=== PATIENT | female | born 1980 | race Caucasian/White ===

== ENCOUNTER → 2020-04-28 14:15 | Outpatient (CLI) | payer MEDICAID, SELFPAY ==
[2020-04-28 12:46] VITALS: BMI 41.6
== END ==
PROVIDERS: Referring Provider Physician Assistant Medical; Visit Provider Physician Assistant Medical
DX: U07.1 COVID-19 (principal)
CPT/HCPCS: 87635; U0003

== ENCOUNTER 2022-11-03 10:34 | Emergency (ER) | payer OTHER, SELFPAY ==
[2022-11-03 10:35] VITALS: BP 181/95; PULSE 87; RESP 16; TEMP 36.6; O2SAT 99; BMI 42.9
--- NOTE | 2022-11-03 10:55 | RAD_ITS ---
INDICATION: neck injury EXAMINATION/TECHNIQUE: X-RAY - XR Spine Cervical 2 or 3 Views COMPARISON: None. FINDINGS: VERTEBRAE: Preserved vertebral body height. No evidence of acute compression fracture deformity. The lower cervical spine is suboptimally visualized. No spondylolisthesis. Straightening of the cervical spine. No significant facet arthropathy. DISCS: Mild disc space narrowing of C4-C5. Small anterior degenerative osteophyte formations. NECK SOFT TISSUES: No prevertebral soft tissue widening. LUNG APICES: No demonstrated pneumothorax. RAD/Cerv Spine 2 or 3 Views IMPRESSION: 1. Straightening of the cervical spine. 2. No evidence for acute fracture on this examination.. Electronically Signed: Emory Elias MD at 11:38 EDT ,
--- NOTE | 2022-11-03 11:00 | RAD_ITS ---
INDICATION: injury EXAMINATION/TECHNIQUE: X-RAY - XR Spine Lumbar 2 or 3 Views COMPARISON: None. FINDINGS: VERTEBRAE: Preserved vertebral body height. No fracture. No spondylolisthesis. Preservation of the normal lumbar lordosis. Minimal levoscoliosis. DISCS: Narrowing of L4-L5 and L5-S1 disc spaces. INCLUDED ABDOMEN: Included bowel gas pattern is non-obstructive. RAD/Lumbar Spine 2 or 3 Views IMPRESSION: 1. No evidence of acute fracture. 2. Narrowing of L4-L5 and L5-S1 disc spaces Electronically Signed: Emory Elias MD at 11:34 EDT ,
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
[2022-11-03 12:55] VITALS: PULSE 75; RESP 16; O2SAT 97
== END 2022-11-03 12:55 | disposition home or self-care (01) ==
PROVIDERS: Emergency Provider Emergency Medicine; PCP Physician Assistant; Visit Provider Emergency Medicine
DX: S06.0X0A Concussion without loss of consciousness, initial encounter (principal); S39.012A Strain of muscle, fascia and tendon of lower back, initial encounter; S16.1XXA Strain of muscle, fascia and tendon at neck level, initial encounter; V43.52XA Car driver injured in collision with other type car in traffic accident, initial encounter; Y92.410 Unspecified street and highway as the place of occurrence of the external cause
CPT/HCPCS: 72040; 72100; 99282